=== PATIENT | male | born 1970 | race African-American/Black ===

== ENCOUNTER 2017-03-26 19:16 | Emergency (ER) | payer SELFPAY ==
--- NOTE | 2017-03-26 20:15 | RADIOLOGY REPORT (SQ) ---
EXAM DESCRIPTION: WRIST LEFT 3 VIEWS COMPLETED DATE/TIME: 03/26/2017 8:08 pm REASON FOR STUDY: Shot with nail gun COMPARISON: None. NUMBER OF VIEWS: Three views. TECHNIQUE: AP, lateral, and oblique radiographic images acquired of the left wrist. LIMITATIONS: None. FINDINGS: MINERALIZATION: Normal. BONES: No acute fracture or dislocation. No worrisome bone lesions. Normal alignment. SOFT TISSUES: No soft tissue swelling. No foreign body. OTHER: No other significant finding. IMPRESSION: NEGATIVE STUDY OF THE LEFT WRIST. NO RADIOGRAPHIC EVIDENCE OF ACUTE INJURY. TECHNICAL DOCUMENTATION: JOB ID: [id number] [employer]- All Rights Reserved
[2017-03-26] MEDS ORDERED: DIPH/PERTUSS(ACELL)/TETANUS VAC/PF 0.5 ML SYR (>=10YO) IM ONE (20:54)
--- NOTE | 2017-03-26 21:01 | ER Document Report ---
ED Hand/Wrist Injury - General Chief Complaint: Wrist Injury Stated Complaint: WRIST INJURY Time Seen by Provider: 03/26/17 20:03 Mode of Arrival: Ambulatory Information source: Patient Notes: Patient is a 46-year-old black male comes emergency room complaining of nail puncture to the left wrist. Patient states he was using a nail gun was supporting a board with his left hand while trying to toe in a tenpenny nail with a nail gun the nail went into the wood and somehow bent back and caught patient into the left wrist near the radial artery. Patient stated he had extreme pain and a lot of bleeding but then it subsided and he went about his day. Since then it is started to swell and is getting tingling and numbness in the fingers on the left hand. TRAVEL OUTSIDE OF THE [place] IN LAST 30 DAYS: No - HPI Patient complains to provider of: Left wrist pain Injury to: Wrist Onset: This morning Where: Home Timing: Constant Quality of pain: Sharp, Throbbing Severity: Moderate Pain Level: 3 Context: Other - Puncture wound to left wrist - Related Data Allergies/Adverse Reactions: No Known Allergies Allergy (Verified 04/22/15 10:21) Past Medical History - General Information source: Patient - Social History Smoking Status: Current Every Day Smoker Cigarette use (# per day): No - 1 cigar per day Smoking Education Provided: Yes Frequency of alcohol use: Rare Drug Abuse: None Lives with: Family Family History: Reviewed & Not Pertinent Patient has suicidal ideation: No Patient has homicidal ideation: No Renal/ Medical History: Denies: Hx Peritoneal Dialysis - Immunizations Hx Diphtheria, Pertussis, Tetanus Vaccination: Yes Review of Systems - Review of Systems Constitutional: No symptoms reported EENT: No symptoms reported Cardiovascular: No symptoms reported Respiratory: No symptoms reported Gastrointestinal: No symptoms reported Genitourinary: No symptoms reported Male Genitourinary: No symptoms reported Musculoskeletal: No symptoms reported, Joint pain Skin: No symptoms reported Hematologic/Lymphatic: No symptoms reported Neurological/Psychological: No symptoms reported -: Yes All other systems reviewed and negative Physical Exam - Vital signs Vitals: Temp Pulse Resp BP Pulse Ox 98.4 F 70 18 133/79 H 98 03/26/17 19:36 03/26/17 19:36 03/26/17 19:36 03/26/17 19:36 03/26/17 19:36 Interpretation: Hypertensive - General General appearance: Alert, Other - Uncomfortable appearing - Respiratory Respiratory status: No respiratory distress Chest status: Nontender Breath sounds: Normal. No: Decreased air movement, Nonproductive cough, Productive cough, Rales, Rhonchi, Stridor, Wheezing, Other - Cardiovascular Rhythm: Regular Heart sounds: Normal auscultation Murmur: No - Extremities General upper extremity: Tender, Normal temperature. No: Normal inspection, Nontender, Edema, Normal color, Normal ROM, Normal strength, Other General lower extremity: Normal inspection, Normal ROM Wrist: Tender, Limited ROM, Other - Examination patient's left wrist shows her to be a puncture wound at approximately half an inch from the base of the palm near the thumb. Is also more medial than lateral. The area to palpation shows her to be a good strong radial pulse with no sign of there is still considerable concern that patient may have nicked 1 of the hematoma. Which is kassie because the puncture wound is right next to the bumping of the radial artery. Patient has flexion inspection of the thumb although it is decreased secondary to discomfort and pain. To resistance. He also has opposition which is normal and a decreased powder coater strength of the hand primarily with the thumb. He has good cap refill in the nailbeds of all fingers of the left hand. Tendons along the base of the thumb even though he has full adduction and extension. Hand: Tender, Swelling, Other. No: Normal, Nontender, Abrasion, Deformity, Dislocation, Ecchymosis - Patient of the hand also shows that patient has full extension of all fingers and full flexion of all fingers although the powder coater strength is present it is decreased. There does not appear to be any involvement of any flexor or extensor tendons, Instability, Nail injury, Laceration, No evidence of human bite, No evidence of FB, Tendon deficit Course - Vital Signs Vital signs: Temp Pulse Resp BP Pulse Ox 98.4 F 70 18 133/79 H 98 03/26/17 19:36 03/26/17 19:36 03/26/17 19:36 03/26/17 19:36 03/26/17 19:36 Procedures - Immobilization Wrist Pre-Proc Neuro Vasc Exam: Normal Immobilizer type: Cock-up Performed by: PCT Post-Proc Neuro Vasc Exam: Normal Alignment checked and good: Yes Discharge - Discharge Clinical Impression: Puncture wound of wrist, left Qualifiers: Encounter type: initial encounter Qualified Code(s): S61.532A - Puncture wound without foreign body of left wrist, initial encounter Condition: Good Disposition: HOME, SELF-CARE Instructions: Stab Wound ([facility]) Additional Instructions: Home and use the splint for the next 4-5 days. He may take it off to ice down the area 3 times a day. Highly suggest using the sling for 2-3 days to keep the hand elevated when walking. I am giving you the name of the orthopedic hand doctor that we refer to you may contact his office to see if he can accommodate you if this continues to hurt. Should you have any concerns or problems increased swelling or increased warmth to the hand or any concerns return to ER for recheck. Prescriptions: Hydrocodone/Acetaminophen [Lopez 7.5-325 Tablet] 1 each PO Q6 #12 tablet Sulfamethoxazole/Trimethoprim [Bactrim Ds Tablet] 1 each PO BID #20 tablet Forms: Elevated Blood Pressure Referrals: ALEX ANNE DO [ACTIVE STAFF] - Follow up as needed
[2017-03-26] MEDS ORDERED: HYDROCODONE/ACETAMINOPHEN 5-325 MG 6 TAB/DSPK PO PRN (21:11)
[2017-03-26] MEDS ORDERED: SULFAMETHOXAZOLE/TRIMETHOPRIM 800-160 MG TABLET PO ONE (21:11)
[2017-03-26 21:29] VITALS: BP 128/72
== END 2017-03-26 21:27 | disposition home or self-care (01) ==
LOC: ER 19:16
DX: S61.532A Puncture wound without foreign body of left wrist, initial encounter (principal); W29.4XXA Contact with nail gun, initial encounter; Y93.89 Activity, other specified; Y92.009 Unspecified place in unspecified non-institutional (private) residence as the place of occurrence of the external cause; R20.0 Anesthesia of skin; R20.2 Paresthesia of skin; F17.290 Nicotine dependence, other tobacco product, uncomplicated
CPT/HCPCS: 99283; 90471; 73110; 90715; L3908

== ENCOUNTER 2019-12-11 10:27 | Emergency (ER) | payer SELFPAY ==
[2019-12-11 11:07] VITALS: BP 108/68
[2019-12-11 15:21] LABS: ABSOLUTE EOSINOPHILS # (AUTO) 0.4 10^3/uL (0.0-0.6); ABSOLUTE LYMPHOCYTES (AUTO) 2.9 10^3/uL (0.5-4.7); ABSOLUTE MONOCYTES (AUTO) 0.5 10^3/uL (0.1-1.4); ABSOLUTE NEUT (AUTO) 2.4 10^3/uL (1.7-8.2); BASOPHILS % (AUTO) 0.8 % (0-2); EOSINOPHILS % (AUTO) 5.7 % (0-6); HEMOGLOBIN 19.1 g/dL (13.5-17.0); LYMPHOCYTES % (AUTO) 46.7 % (13-45); MEAN CORPUSCULAR HEMOGLOBIN 30.8 pg (27.0-33.4); MEAN CORPUSCULAR HGB CONC 34.4 g/dL (32.0-36.0); MEAN CORPUSCULAR VOLUME 90 fl (80-97); MONOCYTES % (AUTO) 8.2 % (3-13); PLATELET COUNT 341 10^3/uL (150-450); RED BLOOD COUNT 6.19 10^6/uL (4.35-5.55); RED CELL DISTRIBUTION WIDTH 14.2 % (11.5-14.0); SEGMENTED NEUTROPHILS % (AUTO) 38.6 % (42-78); TOTAL CELLS COUNTED % (AUTO) 100 %; WHITE BLOOD COUNT 6.2 10^3/uL (4.0-10.5)
[2019-12-11 15:23] LABS: HEMATOCRIT 55.5 % (37.9-51.0)
[2019-12-11 15:47] LABS: ALKALINE PHOSPHATASE 106 U/L (38-126); ANION GAP 10 (5-19); ASPARTATE AMINO TRANSFERASE 33 U/L (17-59); BILIRUBIN,DIRECT 0.3 mg/dL (0.0-0.4); BILIRUBIN,TOTAL 1.7 mg/dL (0.2-1.3); BLOOD UREA NITROGEN 15 mg/dL (7-20); CARBON DIOXIDE 28 mmol/L (22-30); CHLORIDE 104 mmol/L (98-107); GLUCOSE 116 mg/dL (75-110); POTASSIUM 4.7 mmol/L (3.6-5.0); TOTAL PROTEIN 8.1 g/dL (6.3-8.2)
--- NOTE | 2019-12-11 16:21 | ER Document Report ---
ED General - General Chief Complaint: Abdominal Pain Stated Complaint: LOW ABDOMINAL PAIN Time Seen by Provider: 12/11/19 11:07 Mode of Arrival: Ambulatory Information source: Patient Notes: Presents to the emergency department with a complaint of pain in the left lower abdominal area. States that he was working to change a tire yesterday and strained while using a tool. He had a severe sharp pain in the lower abdominal area with a spasm-like episode. Caused him to have to lie down in a truck. Today he has continued to have pain in the left lower abdominal region. Denies any prior history of similar episodes. TRAVEL OUTSIDE OF THE [place] IN LAST 30 DAYS: No - Related Data Allergies/Adverse Reactions: No Known Allergies Allergy (Verified 04/22/15 10:21) Past Medical History - Social History Smoking Status: Current Every Day Smoker Frequency of alcohol use: None Drug Abuse: None Family History: Reviewed & Not Pertinent Patient has homicidal ideation: No Renal/ Medical History: Denies: Hx Peritoneal Dialysis - Immunizations Hx Diphtheria, Pertussis, Tetanus Vaccination: Yes Review of Systems - Review of Systems Notes: Constitutional: Negative for fever. HENT: Negative for sore throat. Eyes: Negative for visual changes. Cardiovascular: Negative for chest pain. Respiratory: Negative for shortness of breath. Gastrointestinal: + Abdominal pain Genitourinary: Negative for dysuria. Musculoskeletal: Negative for back pain. Skin: Negative for rash. Neurological: Negative for headaches, weakness or numbness. 10 point ROS negative except as marked above and in HPI. Physical Exam - Vital signs Vitals: Temp Pulse Resp BP Pulse Ox 98.0 F 77 16 108/68 93 12/11/19 11:05 12/11/19 11:05 12/11/19 11:05 12/11/19 11:05 12/11/19 11:05 - Notes Notes: PHYSICAL EXAMINATION: Physical Exam: General: Well-nourished [id number] year-old male in no acute distress HEENT: NC/AT, pupils equal round and reactive to light, MM moist,nares clear, oropharynx clear, airway patent Neck: supple, no adenopathy, no masses. Good range of motion Lungs: clear, no wheezing, no rales no rhonchi CVS: Regular rate and rhythm no murmur gallop or rub Abdomen: Soft, active, tenderness in the left lower quadrant, bulging noted when cough exam for hernia. Wall defect noted in the right inguinal area, no masses, no hepatosplenomegaly Ext: No edema, clubbing or cyanosis. Neuro: Alert and responsive, moving all 4 extremities on command, cranial nerves intact, no focal findings Skin: Intact no open lesions, no rash PSYCH: Normal mood, normal affect. Course - Re-evaluation Re-evalutation: Differential diagnosis Electrolyte imbalance, abdominal wall hernia,incarcerated hernia, inguinal hernia 12/11/19 16:31 Patient's exam is benign. And easily reducible left inguinal hernia., No masses or rebound. - Vital Signs Vital signs: Temp Pulse Resp BP Pulse Ox 98.0 F 77 16 108/68 93 12/11/19 11:05 12/11/19 11:05 12/11/19 11:05 12/11/19 11:05 12/11/19 11:05 - Laboratory Result Diagrams: 12/11/19 15:06 12/11/19 15:06 Laboratory results interpreted by me: 12/11/19 12/11/19 15:06 15:06 RBC 6.19 H Hgb 19.1 H Hct 55.5 H RDW 14.2 H Lymph % (Auto) 46.7 H Seg Neutrophils % 38.6 L Glucose 116 H Total Bilirubin 1.7 H 12/11/19 16:28 I have reviewed laboratory data and used this information for the treatment decisions regarding the patient. - Diagnostic Test Radiology reviewed: Image reviewed, Reports reviewed Radiology results interpreted by me: 12/11/19 16:29 Abdominal ultrasound: Left inguinal hernia containing fat. Discharge - Discharge Clinical Impression: Left inguinal hernia Condition: Good Disposition: HOME, SELF-CARE Instructions: Hernia ([facility], 1928–1983) Additional Instructions: You were seen in the emergency department today for pain in the left lower quadrant area after episode of sudden onset yesterday. Your evaluation reveals a left inguinal hernia. This hernia reduces easily and does not contain bowel material. You are being given the name of a local general surgeon with whom you can follow-up with and schedule a repair as an outpatient. If you are having worsening symptoms or other concerns you may return to the emergency department for further evaluation and treatment HOME CARE INSTRUCTIONS & INFORMATION: Thank you for choosing us for your medical needs. We hope you're satisfied with the care you received. After you leave, you must properly care for your problem and, at the same time, observe its progress. Any condition can change. Some illnesses can change rapidly over hours or days. If your condition worsens, return to the Emergency Department or see your physician promptly. ABOUT YOUR X-RAYS AND EKG'S: If you had an EKG or X-rays taken, they have been read by the Emergency Physician. The X-rays and EKG's will also be read by a Radiologist or [employer] within 24 hours. If discrepancies are noted, you will be notified by telephone. Please be certain the ED has a correct telephone number & address where you can be reached. Also, realize that some fractures or abnormalities do not show up on initial X-rays. If your symptoms continue, see your physician. ABOUT YOUR LABORATORY TEST: If you had laboratory tests, the results have been reviewed by the Emergency Physician. Some test results (for example cultures) may not be available for several days. You will be contacted if any test result shows you need additional treatment. Please be certain the ED has a correct telephone number and address where you can be reached. ABOUT YOUR MEDICATIONS: You will receive instructions on how to take your medicine on the prescription label you receive. Additional information may be provided by the Pharmacy. If you have questions afterwards, call the ED for clarification or further instructions. Some prescribed medications may cause drowsiness. Do not perform tasks such as driving a car or operating machinery without consulting your Pharmacist. If you feel you need a refill of pain medication, your condition will need re-evaluation. Please do not call for a refill of any medication. ABOUT YOUR SIGNATURE: Signature of this document acknowledges to followin. Understanding that you received emergency treatment and that you may be released before al medical problems are known or treated. Please be certain the ED has a correct phone number & address where you can be reached. 2. Acknowledgement that you will arrange for follow-up care as recommended. 3. Authorization for the Emergency Physician to provide information to your follow-up Physician in order to maximize your care. AT ANY TIME, IF YOUR SYMPTOMS CHANGE SIGNIFICANTLY OR WORSEN OR YOU DEVELOP NEW SYMPTOMS, RETURN TO THE EMERGENCY DEPARTMENT IMMEDIATELY FOR RE-EVALUATION. OUR GOAL IS TO PROVIDE EXCELLENT MEDICAL CARE! WE HOPE THAT WE HAVE MET YOUR EXPECTATIONS DURING YOUR EMERGENCY DEPARTMENT VISIT AND THAT YOU FEEL YOU HAVE RECEIVED EXCELLENT CARE! Referrals: NASREEN HUDDLESTON MD [ACTIVE STAFF] - Follow up as needed
--- NOTE | 2019-12-12 15:17 | RADIOLOGY REPORT (SQ) ---
EXAM DESCRIPTION: U/S NON OB PEL W/DOPPLER IMAGES COMPLETED DATE/TIME: 12/11/2019 11:51 am REASON FOR STUDY: Working on a car heavy lifting pain left groin COMPARISON: None. TECHNIQUE: Dynamic and static grayscale images acquired of the localized site of clinical concern an d recorded on PACS. Additional selected color Doppler and spectral images recorded. SITE OF CONCERN: Left groin LIMITATIONS: None. FINDINGS: Fat containing left inguinal hernia. Approximately 2.3 x 0.9 x 1.4 cm. More evident on V alsalva. Patient experiencing pain while performing a Valsalva. IMPRESSION: Fat containing left inguinal hernia. TECHNICAL DOCUMENTATION: JOB ID: [id number] [employer]- All Rights Reserved Reading location - IP/workstation name: [email or web address]
== END 2019-12-11 16:37 | disposition home or self-care (01) ==
LOC: ER 10:27
DX: K40.90 Unilateral inguinal hernia, without obstruction or gangrene, not specified as recurrent (principal); F17.200 Nicotine dependence, unspecified, uncomplicated
CPT/HCPCS: 36415; 76856; 80053; 85025; 87086; 93976; 99284